=== PATIENT | female | born 1995 | race Caucasian/White ===

== ENCOUNTER 2021-04-29 15:02 | Emergency (ER) | payer MEDICAID ==
[2021-04-29] MEDS ORDERED: Sodium Chloride 0.9% 10 ML Syringe FLUSH PRN (15:34)
[2021-04-29] MEDS ORDERED: Metoclopramide 10 MG/2 ML SDV IVPUSH ONE (15:35)
[2021-04-29] MEDS ORDERED: Ketorolac 30 MG/ML SDV IVPUSH ONE (15:35)
[2021-04-29] MEDS ORDERED: diphenhydrAMINE 50 MG/ML SDV IVPUSH ONE (15:36)
== END 2021-04-29 18:50 | disposition home or self-care (01) ==
LOC: JD.ED 15:02
DX: R51.9 Headache, unspecified (principal); M79.605 Pain in left leg; Z88.0 Allergy status to penicillin
CPT/HCPCS: 93971-26-LT; 93971-LT; 96374; 96375; 99284-25; J1200; J1885; J2765